=== PATIENT | female | born 1955 | race Caucasian/White ===

== ENCOUNTER 2018-12-29 20:13 | Emergency (ER) | payer BC ==
[2018-12-29 20:22] VITALS: BP 117/76
--- NOTE | 2018-12-29 20:29 | UC ---
Eye Complaint HPI - HPI Summary HPI Summary: 63 yo female presents with right eye redness and yellow discharge. 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 This morning noticed some irritation to her right eye. As the day has progressed, she has developed increasing right eye irritation, redness, and now has yellow purulent drainage. She is feeling well otherwise and denies fever, sinus symptoms, allergies, trauma to eye, vision changes, or contact usage. - History of Current Complaint Chief Complaint: UCEye Stated Complaint: RT EYE IRRITATION Time Seen by Provider: 12/29/18 20:24 Hx Obtained From: Patient Onset/Duration: Sudden Onset Timing: Constant Severity Initially: Mild Severity Currently: Mild Pain Intensity: 4 Pain Scale Used: 0-10 Numeric - Allergies/Home Medications Allergies/Adverse Reactions: Allergies Allergy/AdvReac Type Severity Reaction Status Date / Time No Known Allergies Allergy Verified 12/29/18 20:21 Home Medications: Home Medications Ibuprofen [Advil] 400 mg PO ONCE PRN 12/29/18 [History Confirmed 12/29/18] PMH/Surg Hx/FS Hx/Imm Hx Endocrine History: Hypothyroidism Cardiovascular History: Hypertension - Surgical History Surgical History: Yes Surgery Procedure, Year, and Place: RIGHT LUMPECTOMY X - Family History Known Family History: Positive: Hypertension - Social History Occupation: Employed Part-time Lives: With Family Alcohol Use: None Substance Use Type: None Smoking Status (MU): Former Smoker Type: Cigarettes - Immunization History Most Recent Influenza Vaccination: Not UTD Review of Systems All Other Systems Reviewed And Are Negative: Yes Constitutional: Positive: Negative Skin: Positive: Negative Eyes: Positive: Drainage, Eye Redness ENT: Positive: Negative Respiratory: Positive: Negative Cardiovascular: Positive: Negative Neurovascular: Positive: Negative Neurological: Positive: Negative Psychological: Positive: Negative Physical Exam - Summary Physical Exam Summary: GENERAL: WDWN. No pain distress. SKIN: No rashes, sores, lesions, or open wounds. HEENT: Head: AT/NC Eyes: EOM intact. PERRLA. RIGHT EYE: Mild scleral injection. Conjunctiva with moderate erythema and inflammation. Moderate thick yellow discharge. Nose: NTTP maxillary and frontal sinus. NECK: Supple. Nontender. No lymphadenopathy. CHEST: No accessory muscle use. Breathing comfortably and in no distress. CV: Pulses intact. Cap refill <2seconds NEURO: Alert. PSYCH: Age appropriate behavior. Triage Information Reviewed: Yes Vital Signs: Initial Vital Signs Temp 98.0 F 12/29/18 20:18 Pulse 83 12/29/18 20:18 Resp 18 12/29/18 20:18 BP 117/76 12/29/18 20:18 Pulse Ox 98 12/29/18 20:18 Vital Signs Reviewed: Yes Eye Complaint Course/Dx - Course Course Of Treatment: Right eye conjunctivitis. - Differential Dx/Diagnosis Provider Diagnosis: Conjunctivitis Discharge - Sign-Out/Discharge Documenting (check all that apply): Patient Departure All imaging exams completed and their final reports reviewed: No Studies - Discharge Plan Condition: Stable Disposition: HOME Prescriptions: Ofloxacin 0.3% (Eye Drop) [Ocuflox OPTH 0.3% (Eye Drop)] 1 drop RIGHT EYE Q3H # 1 btl Patient Education Materials: Conjunctivitis (ED) Referrals: Annemarie Spaulding NP [Primary Care Provider] - Additional Instructions: If you develop a fever, shortness of breath, chest pain, new or worsening symptoms - please call your PCP or go to the ED immediately. - Billing Disposition and Condition Condition: STABLE Disposition: Home
== END 2018-12-29 20:36 | disposition home or self-care (01) ==
LOC: UCEAST 20:13
DX: H10.9 Unspecified conjunctivitis (principal); Z87.891 Personal history of nicotine dependence; I10 Essential (primary) hypertension
CPT/HCPCS: 99212; G0463